=== PATIENT | female | born 1995 | race Caucasian/White ===

== ENCOUNTER 2022-03-30 19:58 | Emergency (ER) | payer BC ==
[2022-03-30 20:19] VITALS: BP 128/85; PULSE 93; RESP 19; TEMP 98.6; BMI 36.6
[2022-03-30] MEDS ORDERED: DIPHTH,PERTUSS(ACELL),TET 0.5 ML DISP.SYRIN IM ONE ×2 (21:27→21:29)
[2022-03-30] MEDS ORDERED: AMOX TR/POT CLAV 875MG/125MG TABLETS (FP) PO ONE (21:28)
[2022-03-30] MEDS ORDERED: AMOX TR/POT CLAV 875MG/125MG TABLETS (FP) ONE (21:29)
== END 2022-03-30 21:36 | disposition home or self-care (01) ==
LOC: JERFT 19:58
PROC: 3E0234Z Introduction of Serum, Toxoid and Vaccine into Muscle, Percutaneous Approach (ICD-10-PCS; principal; 2022-03-30)
DX: S61.250A Open bite of right index finger without damage to nail, initial encounter (principal); W55.01XA Bitten by cat, initial encounter
CPT/HCPCS: 73130-TC-RT-FY; 90715; 99284-25